=== PATIENT | male | born 1960 | race Caucasian/White ===

== ENCOUNTER → 2016-10-18 | Outpatient (CLI) | payer OTHER ==
--- NOTE | 2016-10-18 12:22 | DX ---
AP Upright Pelvis and Crosstable Lateral View of the Right Hip, 2 Views at 10:40 a.m. Clinical History: 56-year-old male with right hip pain. ICD10 Diagnostic Code: M16.11. Comparison Study: Right hip, dated November 06, 2013. Findings: Bone mineralization is preserved. Again, there are small osseous areas of proliferation at the lateral femoral head-neck junctions, consistent with femoral-acetabular impingement. There is drew e mild left lateral femoral head uncovering. There is degenerative osteoarthritic narrowing of each o f the femoral-acetabular joint spaces, right greater than left. Acetabular periarticular degenerative spurring is seen. The ischial pubic rami are intact. There is a well-corticated ossific density medi al to the right femoral neck. There is no symphysis pubis or SI joint diastasis. Impression: Radiographically similar to the previous study of November 06, 2013 with osteoarthritic ch anges of the hips (right greater the left), and secondary evidence of femoral-acetabular impingement.
== END ==
LOC: BMCIMAGING 10:31
PROVIDERS: ATTEND Orthopaedic Surgery
DX: M16.0 Bilateral primary osteoarthritis of hip (principal)